=== PATIENT | female | born 1965 | race Caucasian/White ===

== ENCOUNTER 2020-06-02 10:47 | Emergency (ER) | payer BC, OTHER ==
[2020-06-02 11:03] VITALS: BP 142/86; PULSE 73
[2020-06-02] MEDS ORDERED: Sodium Chloride 0.9% 10 ML Syringe FLUSH PRN (11:19)
--- NOTE | 2020-06-02 11:22 | EDM.PDOC ---
ED HPI GENERAL MEDICAL PROBLEM - General Chief Complaint: Flank Pain Stated Complaint: RT SIDE FLANK PAIN Time Seen by Provider: 06/02/20 10:59 Source of Information: Reports: Patient, RN Notes Reviewed History Limitations: Reports: No Limitations - History of Present Illness INITIAL COMMENTS - FREE TEXT/NARRATIVE: Patient is a 54-year-old female who presents to the ED for the evaluation of her right flank pain. Patient notes she has a history of fibromyalgia, PCOS, and endometriosis. She has had this right flank pain since May 20, 2020, she states that is progressively gotten worse since then. She has been using Tylenol for pain management, she also has a gabapentin prescribed to her for her fibromyalgia. She states that there feels like there is kind of a chronic pressure, and this has worsened over the last few days. She denies any history of kidney stones. She states that the pain radiates from the right flank down into her groin. She does have a history of a , and hysterectomy for PCOS and endometriosis, she states that she was "full of cysts". Patient notes that the pain is not present on her left side. It does not radiate further up her back or into her back. She is notes nothing really makes it better or worse. Patient denies any other sick-like symptoms, fever/chills, cough/shortness of breath, nausea/vomiting/diarrhea, she further denies any urinary issues like dysuria, frequency or urgency. Her primary care provider is Corinne Strickland Right Flank Pain Score (Numeric/FACES): 6 - Related Data Allergies Allergy/AdvReac Type Severity Reaction Status Date / Time Beef Containing Products Allergy Other Verified 06/02/20 11:07 broccoli Allergy Indigestion Verified 06/02/20 11:07 codeine Allergy Other Verified 06/02/20 11:03 Dairy Products Allergy Other Verified 06/02/20 11:07 desipramine Allergy Rash Verified 06/02/20 11:03 erythromycin base Allergy Rash Verified 06/02/20 11:03 gelatin Allergy Other Verified 06/02/20 11:07 gluten Allergy Indigestion Verified 06/02/20 11:07 Penicillins Allergy Rash Verified 06/02/20 11:03 potato Allergy Other Verified 06/02/20 11:07 soy Allergy Indigestion Verified 06/02/20 11:07 Sulfa (Sulfonamide Allergy Rash Verified 06/02/20 11:03 Antibiotics) tetracycline Allergy Rash Verified 06/02/20 11:03 Home Meds: Home Meds Escitalopram [Lexapro] 10 mg PO BEDTIME 06/03/16 [History] Furosemide 40 mg PO DAILY 06/03/16 [History] Montelukast [Singulair] 10 mg PO BEDTIME 06/03/16 [History] Topiramate [Topamax] 400 mg PO BID 06/03/16 [History] Gabapentin [Neurontin] 900 mg PO BEDTIME 06/02/20 [History] levETIRAcetam [Keppra] 1,825 mg PO BID 06/02/20 [History] tiZANidine [Zanaflex] 4 mg PO BEDTIME 06/02/20 [History] Past Medical History Respiratory History: Reports: Sleep Apnea, Other (See Below) Other Respiratory History: uses CPAP at night [employer] History: Reports: Endometriosis, Polycystic Ovaries, Musculoskeletal History: Reports: Osteoarthritis Other Musculoskeletal History: bilateral knees Psychiatric History: Reports: Depression Endocrine/Metabolic History: Reports: Obesity/BMI 30+ - Past Surgical History Female Surgical History: Reports: Section, Hysterectomy Social & Family History - Caffeine Use Caffeine Use: Reports: None ED ROS GENERAL - Review of Systems Review Of Systems: Comprehensive ROS is negative, except as noted in HPI. ED EXAM, GI/ABD - Physical Exam Exam: See Below Exam Limited By: No Limitations General Appearance: Alert, WD/WN, No Apparent Distress, Obese (morbid obesity) Respiratory/Chest: No Respiratory Distress, Lungs Clear, Normal Breath Sounds, No Accessory Muscle Use, Chest Non-Tender Cardiovascular: Normal Peripheral Pulses, Regular Rate, Rhythm, No Edema, No Murmur GI/Abdominal Exam: Normal Bowel Sounds, Soft, No Distention, Tender (on the right flank; she states that this is the area of pain. The abdomen exam is hard to appreciate any palpable masses d/t body habitus.) Extremities: Normal Inspection, Normal Capillary Refill Neurological: Alert, Oriented, Normal Cognition, No Motor/Sensory Deficits Psychiatric: Normal Affect, Normal Mood Skin Exam: Warm, Dry, Intact, Normal Color, No Rash Course - Vital Signs Last Recorded V/S: Last Vital Signs Temp 97.0 F 06/02/20 10:58 Pulse 73 06/02/20 10:58 Resp 19 06/02/20 10:58 BP 142/86 H 06/02/20 10:58 Pulse Ox 98 06/02/20 10:58 - Orders/Labs/Meds Orders: Active Orders 24 hr Category Date Time Status Peripheral IV Care [RC] . DIRECTED Care 06/02/20 11:19 Active Abdomen Ltd [US] Stat Exams 06/02/20 12:50 Ordered Abdomen Pelvis wo Cont [CT] Stat Exams 06/02/20 11:17 Taken Sodium Chloride 0.9% [Normal Saline] 1,000 ml Med 06/02/20 11:30 Active IV ASDIRECTED Sodium Chloride 0.9% [Saline Flush] Med 06/02/20 11:19 Active 10 ml FLUSH ASDIRECTED PRN Peripheral IV Insertion Adult [OM.PC] Routine Oth 06/02/20 11:19 Ordered Medication Orders Sodium Chloride (Normal Saline) 1,000 mls @ 999 mls/hr IV ASDIRECTED MARIVEL Last Admin: 06/02/20 11:46 Dose: 999 mls/hr Documented by: HERMMIC Sodium Chloride (Saline Flush) 10 ml FLUSH ASDIRECTED PRN PRN Reason: Keep Vein Open Last Admin: 06/02/20 11:47 Dose: 10 ml Documented by: HERMMIC Labs: Laboratory Tests 06/02/20 06/02/20 06/02/20 Range/Units 11:50 11:50 11:50 WBC 5.70 (3.98-10.04) K/mm3 RBC 3.93 L (3.98-5.22) M/mm3 Hgb 12.9 (11.2-15.7) gm/dl Hct 38.9 (34.1-44.9) % MCV 99.0 H (79.4-94.8) fl MCH 32.8 H (25.6-32.2) pg MCHC 33.2 (32.2-35.5) g/dl RDW Std Deviation 47.7 H (36.4-46.3) fL Plt Count 262 (182-369) K/mm3 MPV 8.2 L (9.4-12.3) fl Neutrophils % (Manual) 68 H (40-60) % Band Neutrophils % 0 (0-10) % Lymphocytes % (Manual) 27 (20-40) % Atypical Lymphs % 1 % Monocytes % (Manual) 2 (2-10) % Eosinophils % (Manual) 1 (0.7-5.8) % Basophils % (Manual) 1 (0.1-1.2) Platelet Estimate Adequate RBC Morph Comment Normal Sodium 141 (136-145) mEq/L Potassium 4.2 (3.5-5.1) mEq/L Chloride 106 (98-107) mEq/L Carbon Dioxide 27 (21-32) mEq/L Anion Gap 12.2 (5-15) BUN 28 H (7-18) mg/dL Creatinine 0.9 (0.55-1.02) mg/dL Est Cr Clr Drug Dosing 70.30 mL/min Estimated GFR (MDRD) > 60 (>60) mL/min BUN/Creatinine Ratio 31.1 H (14-18) Glucose 89 (74-106) mg/dL Calcium 9.0 (8.5-10.1) mg/dL Magnesium 2.2 (1.8-2.4) mg/dl Total Bilirubin 0.4 (0.2-1.0) mg/dL AST 14 L (15-37) U/L ALT 23 (14-59) U/L Alkaline Phosphatase 109 (46-116) U/L C-Reactive Protein 4.8 H* (<1.0) mg/dL Total Protein 7.2 (6.4-8.2) g/dl Albumin 3.4 (3.4-5.0) g/dl Globulin 3.8 gm/dL Albumin/Globulin Ratio 0.9 L (1-2) Lipase 70 L (73-393) U/L Urine Color (Yellow) Urine Appearance (Clear) Urine pH (5.0-8.0) Ur Specific [place] (1.005-1.030) Urine Protein (Negative) Urine Glucose (UA) (Negative) Urine Ketones (Negative) Urine Occult Blood (Negative) Urine Nitrite (Negative) Urine Bilirubin (Negative) Urine Urobilinogen (0.2-1.0) Ur Leukocyte Esterase (Negative) Urine RBC (0-5) /hpf Urine WBC (0-5) /hpf Ur Epithelial Cells (0-5) /hpf Urine Bacteria (FEW) /hpf Urine Mucus (FEW) /hpf 06/02/20 Range/Units 12:00 WBC (3.98-10.04) K/mm3 RBC (3.98-5.22) M/mm3 Hgb (11.2-15.7) gm/dl Hct (34.1-44.9) % MCV (79.4-94.8) fl MCH (25.6-32.2) pg MCHC (32.2-35.5) g/dl RDW Std Deviation (36.4-46.3) fL Plt Count (182-369) K/mm3 MPV (9.4-12.3) fl Neutrophils % (Manual) (40-60) % Band Neutrophils % (0-10) % Lymphocytes % (Manual) (20-40) % Atypical Lymphs % % Monocytes % (Manual) (2-10) % Eosinophils % (Manual) (0.7-5.8) % Basophils % (Manual) (0.1-1.2) Platelet Estimate RBC Morph Comment Sodium (136-145) mEq/L Potassium (3.5-5.1) mEq/L Chloride (98-107) mEq/L Carbon Dioxide (21-32) mEq/L Anion Gap (5-15) BUN (7-18) mg/dL Creatinine (0.55-1.02) mg/dL Est Cr Clr Drug Dosing mL/min Estimated GFR (MDRD) (>60) mL/min BUN/Creatinine Ratio (14-18) Glucose (74-106) mg/dL Calcium (8.5-10.1) mg/dL Magnesium (1.8-2.4) mg/dl Total Bilirubin (0.2-1.0) mg/dL AST (15-37) U/L ALT (14-59) U/L Alkaline Phosphatase (46-116) U/L C-Reactive Protein (<1.0) mg/dL Total Protein (6.4-8.2) g/dl Albumin (3.4-5.0) g/dl Globulin gm/dL Albumin/Globulin Ratio (1-2) Lipase (73-393) U/L Urine Color Light yellow (Yellow) Urine Appearance Clear (Clear) Urine pH 6.0 (5.0-8.0) Ur Specific [place] 1.020 (1.005-1.030) Urine Protein Negative (Negative) Urine Glucose (UA) Negative (Negative) Urine Ketones Negative (Negative) Urine Occult Blood Negative (Negative) Urine Nitrite Negative (Negative) Urine Bilirubin Negative (Negative) Urine Urobilinogen 0.2 (0.2-1.0) Ur Leukocyte Esterase Negative (Negative) Urine RBC 0-5 (0-5) /hpf Urine WBC 0-5 (0-5) /hpf Ur Epithelial Cells 0-5 (0-5) /hpf Urine Bacteria Not seen (FEW) /hpf Urine Mucus Not seen (FEW) /hpf Meds: Medications Generic Name Dose Route Start Last Admin Trade Name Freq PRN Reason Stop Dose Admin Sodium Chloride 1,000 mls @ 999 mls/hr 06/02/20 11:30 06/02/20 11:46 Normal Saline IV 999 mls/hr ASDIRECTED MARIVEL Administration Sodium Chloride 10 ml 06/02/20 11:19 06/02/20 11:47 Saline Flush FLUSH 10 ml ASDIRECTED PRN Administration Keep Vein Open Discontinued Medications Generic Name Dose Route Start Last Admin Trade Name Freq PRN Reason Stop Dose Admin Hydromorphone HCl 0.5 mg 06/02/20 12:51 06/02/20 15:38 Dilaudid IVPUSH 06/02/20 12:52 0.25 mg ONETIME ONE Administration Ondansetron HCl 4 mg 06/02/20 12:51 06/02/20 13:13 Zofran IVPUSH 06/02/20 12:52 4 mg ONETIME ONE Administration - Re-Assessments/Exams Free Text/Narrative Re-Assessment/Exam: 06/02/20 11:24 Patient presents to the ED for the evaluation of her right flank pain. Will get some basic labs, get IV started, patient is morbidly obese with a BMI of 62, have ordered a CT, but I am unsure if we can accommodate her at this time. 06/02/20 12:53 Laboratory evaluation demonstrates no remarkable change. CRP is mildly elevated at 4. Noncontrast CT has been done and does demonstrate some mild inflammatory changes around the pancreas which may represent mild pancreatitis in the appropriate clinical settings. There are gallstones within her gallbladder as well, recommend gallbladder ultrasound if clinically indicated. Normal appendix, no kidney stones. I did appreciate that there is quite a bit of stool throughout her colon; which would be consistent with constipation as well. At this time I did discuss the findings with the patient, she states her last meal was at around 02[birth year]/1930 this morning and she had a sweet potato and a mandrin orange. I do believe that with the findings of the gallstones in the gallbladder, this could be causing some of her pain. We will get a ultrasound to evaluate the gallbladder at this time. Patient will be given a small dose of pain medication after she has been given her nausea medication as she states she is rather sensitive to pain meds. 06/02/20 14:05 The patient's lipase has come back, and is below normal limits, which would not be suggestive of pancreatitis at this time. Ultrasound is still pending. 06/02/20 15:43 The gallbladder ultrasound demonstrates stones in her gallbladder largest one being 8.9 mm. The wall does not seem overly thickened and the common bile duct is not dilated. Patient will be discharged home with some pain medication and nausea medication along with a bottle of mag citrate. Departure - Departure Time of Disposition: 15:45 Disposition: Home, Self-Care 01 Condition: Good Clinical Impression: Constipation Qualifiers: Constipation type: unspecified constipation type Qualified Code(s): K59.00 - Constipation, unspecified Cholelithiasis Qualifiers: Cholelithiasis location: gallbladder Cholecystitis presence: without cholecystitis Biliary obstruction: without biliary obstruction Qualified Code(s): K80.20 - Calculus of gallbladder without cholecystitis without obstruction - Discharge Information *PRESCRIPTION DRUG MONITORING PROGRAM REVIEWED*: No *COPY OF PRESCRIPTION DRUG MONITORING REPORT IN PATIENT ASPEN: No Instructions: Cholelithiasis, [id number], Gallbladder Eating Plan Referrals: Chanelle Strickland PA-C [Primary Care Provider] - Forms: ED Department Discharge Additional Instructions: You were evaluated in the ER today for your abdomen pain. You had a CT and ultrasound done today. The CT demonstrated that you had gallstones within the gallbladder, and slight constipation. All other structures were unremarkable. You also had a gallbladder ultrasound to evaluate the stones, and there was no sign for any need of emergent surgery at today's visit for removal of your gallbladder. You you have been given a few medications; magnesium citrate for the constipation, please drink one half bottle, if you do not have a rather large bowel movement within the next few hours, repeat the last half bottle. You may experience some abdomen cramping with this, and some looser stools after you use the medication. you were given a prescription for a strong pain medication, hydrocodone/acetaminophen 5/325 mg, please take 1 tab every 6 hours as needed for pain not relieved by Tylenol or ibuprofen alone. Please note this medication does contain Tylenol in it, so do not take more than 4000 mg in a 24- hour time span. These medications can be addictive, so please take as few as possible to achieve adequate pain control. These meds can also be quite constipating, recommend that you increase your oral fluid intake and take a stool softener like MiraLAX while taking these medications. Do not drive while taking this medication. You were given a prescription for Zofran, for nausea as well, 1 tab dissolvable under your tongue every 8 hours as needed for further nausea. Please call Corinne Guerrafaith tomorrow, and tell her you were seen in the ER and were found to have gallstones within your gallbladder and need a possible surgical referral for removal of her gallbladder and/or further management. Please return to the ER at any time if symptoms change or worsen. Sepsis Event Note (ED) - Evaluation Sepsis Screening Result: No Definite Risk - Focused Exam Vital Signs: Vital Signs Temp Pulse Resp BP Pulse Ox 06/02/20 10:58 97.0 F 73 19 142/86 H 98 - My Orders Last 24 Hours: My Active Orders 06/02/20 11:17 Abdomen Pelvis wo Cont [CT] Stat 06/02/20 11:19 Peripheral IV Care [RC] . DIRECTED Sodium Chloride 0.9% [Saline Flush] 10 ml FLUSH ASDIRECTED PRN Peripheral IV Insertion Adult [OM.PC] Routine 06/02/20 11:30 Sodium Chloride 0.9% [Normal Saline] 1,000 ml IV ASDIRECTED 06/02/20 12:50 Abdomen Ltd [US] Stat - Assessment/Plan Last 24 Hours: My Active Orders 06/02/20 11:17 Abdomen Pelvis wo Cont [CT] Stat 06/02/20 11:19 Peripheral IV Care [RC] . DIRECTED Sodium Chloride 0.9% [Saline Flush] 10 ml FLUSH ASDIRECTED PRN Peripheral IV Insertion Adult [OM.PC] Routine 06/02/20 11:30 Sodium Chloride 0.9% [Normal Saline] 1,000 ml IV ASDIRECTED 06/02/20 12:50 Abdomen Ltd [US] Stat
[2020-06-02] MEDS ORDERED: Sodium Chloride 0.9% 1,000 ML IV SCH (11:30)
[2020-06-02] MEDS ORDERED: Ondansetron 4 MG/2 ML SDV IVPUSH ONE (12:51)
[2020-06-02] MEDS: HYDROmorphone 0.5 MG/0.5 ML Syringe IVPUSH ONE ×2 (13:24→15:38)
[2020-06-02] MEDS ORDERED: Magnesium Citrate Solution 296 ML Bottle PO ONE (15:43)
--- NOTE | 2020-06-03 13:04 | CT ---
PROCEDURE INFORMATION: Exam: CT Abdomen And Pelvis Without Contrast Exam date and time: 06/02/2020 11:51 AM Age: 54 years old Clinical indication: Abdominal pain; Patient HX: RT flank pain that radiates to groin TECHNIQUE: Imaging protocol: Computed tomography of the abdomen and pelvis without contrast. Radiation optimization: All CT scans at this facility use at least one of these dose optimization techniques: automated exposure control; mA and/or kV adjustment per patient size (includes targeted exams where dose is matched to clinical indication); or iterative reconstruction. COMPARISON: DX Hip Min 2V or 3V w Pelvis Rt 06/03/2016 7:59 PM FINDINGS: Liver: Normal. No mass. Gallbladder and bile ducts: Gallstones in the gallbladder. Recommend gallbladder ultrasound if clinically indicated. . Pancreas: Mild inflammatory changes around the pancreas may represent mild pancreatitis in the appropriate clinical setting. . Spleen: Normal. No splenomegaly. Adrenal glands: Normal. No mass. Kidneys and ureters: No renal calculus. No ureteral calculus.. Stomach and bowel: Unremarkable. No obstruction. No mucosal thickening. Appendix: Normal appendix. Intraperitoneal space: Unremarkable. No free air. No significant fluid collection. Vasculature: Unremarkable. No abdominal aortic aneurysm. Lymph nodes: Unremarkable. No enlarged lymph nodes. Urinary bladder: Unremarkable as visualized. Reproductive: Surgical resection of the uterus Bones/joints: Levoscoliosis of the lumbar spine No acute fracture. Soft tissues: Unremarkable. IMPRESSION: 1. Gallstones in the gallbladder. Recommend gallbladder ultrasound if clinically indicated. . 2. Normal appendix. 3. No renal calculus. No ureteral calculus.. 4. Mild inflammatory changes around the pancreas may represent mild pancreatitis in the appropriate clinical setting. . Thank you for allowing us to participate in the care of your patient. Dictated and Authenticated by: Heaven Mueller MD 06/02/2020 1:24 PM Central Time ([place] & [place]) [facility] SYSTEMLyndsey
--- NOTE | 2020-06-03 13:16 | US ---
PROCEDURE INFORMATION: Exam: US Abdomen, Limited; Right Upper Quadrant Exam date and time: 06/02/2020 2:12 PM Age: 54 years old Clinical indication: Abdominal pain; Other: RUQ TECHNIQUE: Imaging protocol: US abdomen. Real time ultrasound with image documentation. Limited exam focused on the right upper quadrant. COMPARISON: CT Abdomen Pelvis wo Cont 06/02/2020 11:51 AM FINDINGS: Liver: Liver measures 13 cm.There is a diffuse increase in hepatic parenchymal echogenicity, consistent with fatty infiltration. . Gallbladder: Gallstones in the gallbladder. Largest gallstone 8.9 mm . Gallbladder wall 2 mm Common bile duct: Common bile duct 4 mm Pancreas: Visualized pancreas is unremarkable. Right kidney: Right kidney 10.3 cm. No hydronephrosis Aorta: Proximal aorta 2.2 cm Portal venous: Antegrade flow portal vein Inferior vena cava: Normal IVC IMPRESSION: 1. Liver measures 13 cm.There is a diffuse increase in hepatic parenchymal echogenicity, consistent with fatty infiltration. . 2. Gallstones in the gallbladder. Largest gallstone 8.9 mm . Thank you for allowing us to participate in the care of your patient. Dictated and Authenticated by: Heaven Mueller MD 06/02/2020 3:53 PM Central Time ([place] & [place]) [facility]
== END 2020-06-02 16:20 | disposition home or self-care (01) ==
LOC: JD.ED 10:47
DX: K59.00 Constipation, unspecified (principal); K80.20 Calculus of gallbladder without cholecystitis without obstruction; F32.9 Major depressive disorder, single episode, unspecified; E66.01 Morbid (severe) obesity due to excess calories; Z68.44 Body mass index [BMI] 60.0-69.9, adult; Z79.899 Other long term (current) drug therapy; Z91.018 Allergy to other foods; Z88.5 Allergy status to narcotic agent; Z91.011 Allergy to milk products; Z88.8 Allergy status to other drugs, medicaments and biological substances; Z88.1 Allergy status to other antibiotic agents; Z88.0 Allergy status to penicillin; Z88.2 Allergy status to sulfonamides
CPT/HCPCS: 36415; 74176; 76705; 80053; 81001; 83690; 83735; 85007; 85027; 86140; 96374; 96375; 96376; 99284; A9270; J1170; J2405; J7030